=== PATIENT | female | born 1980 | race Two or more races ===

== ENCOUNTER → 2021-07-31 | Outpatient (CLI) | payer OTHER ==
--- NOTE | 2021-08-03 09:11 | RAD ---
EXAMINATION: MRI LEFT LOWER EXTREMITY JOINT WITHOUT INDICATIONS: Arthritis, left hip pain. History of leg calve perthes. TECHNIQUE: Multiplanar multisequence MRI of the left hip was obtained without contrast. COMPARISON: None. FINDINGS: BONES AND CARTILAGE: There is hardware traversing the proximal left femur, resulting in susceptibilit y artifact and limiting the exam. No definite acute fracture. Alignment is normal. There are prominen t left femoral head and acetabular osteophytes. Small subchondral cysts in the acetabulum. Evaluation of cartilage and the articular surface is very difficult due to artifact. There is mild degenerative joint disease of the right hip. Pubic symphysis and sacroiliac joints are unremarkable. LABRUM: Suspect degenerative labral tear and possible paralabral cyst, although evaluation is limited by artifact. MUSCLES, TENDONS, AND BURSAE: The gluteus medius and minimus, hamstrings, iliopsoas, rectus femoris, and adductor tendons are intact. Muscles are normal. The ischiofemoral space is normal. No bursitis. OTHER: There may be a left hip small joint effusion. No periprosthetic fluid collection or soft tissu e mass. Visualized pelvic contents are unremarkable. IMPRESSION: 1. Limited exam due to susceptibility artifact from left hip prosthesis. There is degenerative joint disease of the left hip with prominent femoral head and acetabular osteophytes. Evaluation of the art icular surface and cartilage is limited by artifact. 2. Probable degenerative labral tear. Evaluation limited by artifact. Electronically signed by: Daina Sanz MD (08/03/2021 9:09 AM) [id number]
== END ==
LOC: MRI 11:06
PROVIDERS: ATTEND Family Medicine
DX: M16.12 Unilateral primary osteoarthritis, left hip (principal); M25.752 Osteophyte, left hip; Z87.39 Personal history of other diseases of the musculoskeletal system and connective tissue; Z96.642 Presence of left artificial hip joint
CPT/HCPCS: 73721